=== PATIENT | male | born 1975 | race Caucasian/White ===

== ENCOUNTER 2016-07-15 20:17 | Emergency (ER) | payer OTHER ==
--- NOTE | 2016-07-15 22:47 | UC ---
Back Pain HPI - HPI Summary HPI Summary: The patient comes in today for: 1. Lower right back pain: Onset: 9 hours ago coming on him slowly today. Palliative/provocative: Laying down helps. Quality: Throbbing. Region: Lower right side of the spine. Severity: 8/10 Time: Constant. Associated symptoms: Fevers/infections: None. Cancer: None. Bowel/bladder incontinence: None Previous back problems: Surgery ""L5 vertebrae" 2007. Numbness: None. Weakness: NOne. Previous treatment: Four over the counter Aleve 5 PM and he vomited it up. * - History of Current Complaint Chief Complaint: UCBackPain Stated Complaint: RIGHT SIDE LOW BACK PAIN,VOMITING Time Seen by Provider: 07/15/16 22:38 Hx Obtained From: Patient - Allergies/Home Medications Allergies/Adverse Reactions: Allergies Allergy/AdvReac Type Severity Reaction Status Date / Time Amoxicillin Allergy Vomiting Verified 07/15/16 21:06 PMH/Surg Hx/FS Hx/Imm Hx Previously Healthy: Yes Endocrine History Of: Denies: Diabetes, Thyroid Disease, Hyperthyroidism, Hypothyroidism, Dyslipidemia Cardiovascular History Of: Denies: Cardiac Disorders, Hypertension, Pacemaker/ICD, Myocardial Infarction , Congestive Heart Failure, Atrial Fibrillation, Deep Vein Thrombosis, Bleeding Disorders Respiratory History Of: Denies: COPD, Asthma, Bronchitis, Pneumonia, Pulmonary Embolism GI/ History Of: Denies: Gastroesophageal Reflux, Ulcer, Gastrointestinal Bleed, Gall Bladder Disease, Kidney Stones, Diverticulitis, Renal Disease, Urosepsis Neurological History Of: Denies: TIA, CVA, Dementia, Seizures, Migraine Psychological History Of: Denies: Anxiety, Depression, Bipolar Disorder, Schizophrenia, Post Traumatic Stress Disorder Cancer History Of: Denies: Lung Cancer, Colorectal Cancer, Breast Cancer, Prostate Cancer, Cervical Cancer Other History Of: Negative For: HIV, Hepatitis B, Hepatitis C, Anticoagulant Therapy - Surgical History Surgical History: Yes Surgery Procedure, Year, and Place: back surgery- L5 2007 - Family History Known Family History: Negative: Cardiac Disease, Hypertension - Social History Occupation: Employed Full-time Alcohol Use: None Substance Use Type: None Smoking Status (MU): Former Smoker Type: Cigarettes Amount Used/How Often: 1 ppd Length of Time of Smoking/Using Tobacco: 20 + yrs Have You Smoked in the Last Year: Yes When Did the Patient Quit Smoking/Using Tobacco: 3/13/17 Review of Systems Constitutional: Negative Skin: Negative Eyes: Negative ENT: Negative Respiratory: Negative Cardiovascular: Negative Gastrointestinal: Negative Genitourinary: Negative All Other Systems Reviewed And Are Negative: Yes Physical Exam Triage Information Reviewed: Yes Appearance: Well-Appearing, Well-Nourished, Pain Distress - He is moving around the room complaining of pain frequently during the history taking. Vital Signs: Initial Vital Signs Temp 98.0 F 07/15/16 21:08 Pulse 65 07/15/16 21:08 Resp 16 07/15/16 21:08 BP 97/65 07/15/16 21:08 Pulse Ox 97 07/15/16 21:08 Vital Signs Reviewed: Yes Eyes: Positive: Conjunctiva Clear. Negative: Discharge ENT: Positive: Hearing grossly normal. Negative: Pharyngeal erythema, Nasal congestion, Nasal drainage, TM bulging, TM dull, TM red, Tonsillar swelling, Tonsillar exudate Dental: Negative: Gross Decay/Caries @, Dental Fracture @ Neck: Positive: Supple, Nontender, No Lymphadenopathy. Negative: Nuchal Rigidity Respiratory: Positive: Chest non-tender, Lungs clear, No respiratory distress, No accessory muscle use. Negative: Crackles, Wheezing Cardiovascular: Positive: RRR, No Murmur Abdomen Description: Positive: Nontender, No Organomegaly, Soft. Negative: Distended, Guarding Musculoskeletal: Positive: Strength Intact, ROM Intact, Other: - Palpation of this lower lumbar spine (paraspinous musculature, CVA and buttocks) elicited no worsening of his pain. Range of motion of his back was limited with forward flexion and backward extension and bilateral flexion. There was no SLR and DTR of the Patellar reflexes were 2+/2 x 2. The Achilles were 0/2 x 2. Neurological: Positive: Alert, Muscle Tone Normal Psychological: Positive: Age Appropriate Behavior, Consolable Skin: Negative: rashes, breakdown Re-Evaluation - Re-Evaluation First Eval Change: Improved - He states that he is much improved in terms of nausea and back pain. Treatment options were discussed and he wants to go home. Back Pain Course/Dx - Course Course Of Treatment: Patient given ketorolac and Maalox. - Differential Dx/Diagnosis Provider Diagnoses: Lower back musculoskeletal pain. Dyspepsia Discharge - Discharge Plan Condition: Stable Disposition: HOME Patient Education Materials: Back Pain (ED), Indigestion (ED) Referrals: Reza Harper PA [Primary Care Provider] - 1 Week (Please see your primary care provider in about a week to see how well you are doing. If you get worse, please be seen sooner.)
[2016-07-15] MEDS ORDERED: Al Hydrox/Mg Hydrox/Simet LIQ* 30 ML UDC PO ONE (22:50)
[2016-07-15] MEDS ORDERED: Ketorolac INJ* 60 MG/2 ML VIAL IM ONE (22:50)
[2016-07-15] MEDS ORDERED: Famotidine TAB* 20 MG PO ONE (23:26)
[2016-07-15] MEDS ORDERED: Omeprazole CAP* 20 MG PO ONE (23:26)
[2016-07-15 23:41] VITALS: BP 108/74
--- NOTE | 2016-08-01 17:21 | PN ---
Progress Note - Progress Note Note: 08/01/16 17:15: I attempted to reach Ms Justyna Gold regarding care of Jay Gold. Justyna and Jay were not available. Ms An Lopez, [id number] to Justyna, took a message for Justyna to return my call. I gave the number for [facility] [phone], and will advise staff to reach me on my cell phone and I will return Justyna Gold or Jay Gold's call.
== END 2016-07-15 23:40 | disposition home or self-care (01) ==
LOC: UCCORT 20:17
DX: M54.5 Low back pain (principal); R10.13 Epigastric pain; Z88.1 Allergy status to other antibiotic agents; Z87.891 Personal history of nicotine dependence
CPT/HCPCS: 96372; 99212; A9270-GY; G0463; J1885